=== PATIENT | male | born 1945 | race Caucasian/White ===

== ENCOUNTER 2016-12-21 23:08 | Emergency (ER) | payer MEDICARE ==
[~2016-12-21] VITALS: Ht 182.9 cm; Wt 99.0 kg
[~2016-12-21 23:08] MED LIST: ACET325T51 PO; AMIO200T PO; ASPI-973 PO; CALC-78 PO; CETI10CA PO; DIGO125T73 PO; FLUO40CA PO; FLUT50DI IH; FRSM80T PO; LEVO100T6 PO; LOSA100T29 PO; MAGN400C PO; METO-272 PO; OMEP20CA11 PO; POTA20TA16 PO; SPIR25TA3 PO; TERA5CAP6 PO; TRAZ-115 PO; WARF2.5T82 PO; WARF5TAB7 PO
--- NOTE | 2016-12-21 23:32 | ED.REPORT ---
HPI-General Illness Date of Service Dec 21, 2016 ED Provider: Jefferson Barraza MD Pt is a 71 y.o. male with a hx of Parkinson's, HTN, and pacemaker who presents to the ED c/o dizziness onset 2129. Pt states that he was using his computer when the onset occurred. He reports associated headache, lightheadedness, nausea , and blurred vision. He denies syncope and hearing loss. Pt claims that he has a hx of ocular migraines which have similar sx, yet they typically resolve in 15 minutes. Nursing Notes Stated Complaint: DIZZINESS/HEADACHE Nursing Notes Reviewed: Yes Allergies: Coded Allergies: acyclovir (Verified Allergy, Mild, 12/22/16) Uncoded Allergies: dust,furof animals (Allergy, Intermediate, 08/20/08) Scheduled Amiodarone (Amiodarone) 200 Mg Tablet 200 MG PO MORNING Aspirin (Aspirin) 81 Mg Tablet 81 MG PO DAILY Calcium Carbonate/Vitamin D3 (Calcium 500 + Vit D Caplet) 1 Each Tablet 1 EACH PO MORNING Cetirizine HCl (Zyrtec) 10 Mg Capsule 5 MG PO BID Digoxin (Digoxin) 125 Mcg Tablet 125 MCG PO MORNING Fluoxetine (Fluoxetine) 40 Mg Capsule 40 MG PO DAILY Fluticasone Propionate (Flovent Diskus) 50 Mcg Disk.w.dev 2 PUFF IH DAILY Furosemide (Furosemide) 80 Mg Tab 80 MG PO MORNING Levothyroxine (Levothyroxine) 100 Mcg Tablet 100 MCG PO DAILY Losartan Potassium (Losartan Potassium) 100 Mg Tablet 100 MG PO HS Magnesium Oxide (Magnesium) 400 Mg Capsule 400 MG PO BID Metoprolol Succinate ER (Metoprolol Succinate ER) 50 Mg Tab.er.24h 50 MG PO MORNING Omeprazole (Omeprazole) 20 Mg Capsule.dr 20 MG PO BID Potassium Chloride (Potassium Chloride) 20 Meq Tab.er.prt 20 MEQ PO DAILY TAKE WITH FOOD Spironolactone (Spironolactone) 25 Mg Tablet 25 MG PO DAILY Terazosin (Terazosin) 5 Mg Capsule 5 MG PO DAILY Trazodone (Trazodone) 50 Mg Tablet 50 MG PO HS Warfarin Sodium (Warfarin Sodium) 2.5 Mg Tablet 2.5 MG PO DAILY Warfarin Sodium (Warfarin Sodium) 5 Mg Tablet 5 MG PO DAILY Scheduled PRN Acetaminophen (Acetaminophen) 325 Mg Tablet 500 MG PO MORNING PRN PRN For Fever General Time Seen by MD: 23:30 Chief Complaint Dizziness Hx Obtained From: Patient Sudden in Onset?: Yes Onset Occurred: 1 - 4 hours ago Symptom Duration: Since onset Location: : Head Quality: Painful Severity: Current: Mild Severity: Maximum: Moderate Past Medical History Past Medical History Notes: Dr. Lion Lagunas PCP: Denisse Past Medical History Parkinson's KEV Reports: Hypertension Reports: Atrial fibrillation Past Surgical History pacemaker hernia repair Mitrial valve repair Smoking History Unknown if Ever Smoker Social History Other Social History: From out of town Ambulatory Status Independent Review of Systems Full Review of Systems Eyes: Reports: Blurred bilateral Ears / Nose / Throat: Denies: Hearing loss bilateral GI: Reports: Nausea, Denies: Vomiting Neurologic: Reports: Dizziness, Headache, Lightheaded, Denies: Syncope Complete sys rev & neg: except as marked. Physical Exam Vital Signs Vital Signs Date Time Temp Pulse Resp B/P Pulse Ox O2 Delivery O2 Flow Rate FiO2 12/22/16 01:56 71 20 128/82 98 Room Air 12/21/16 23:37 36.3 70 15 147/91 99 Room Air Initial VS: Reviewed, Vital signs abnormal Respiratory: Breath sounds normal, No respiratory distress Cardiovascular: Regular rate & rhythm, Intact distal pulses Abdomen / GI: No distention Extremities: Vascular intact, Neuro intact Skin: Warm, Dry, No cyanosis Psychiatric: Mood/affect normal, Behavior normal, Normal thought content General/Constitutional: Awake, Alert, No acute distress, Well appearing, Well developed, Well hydrated, Well nourished, Not toxic appearing Head / Eyes: Atraumatic, Normocephalic, PERRL, EOMI, No nystagmus ENT: Atraumatic, Airway patent, Tympanic membs NL, Ext aud canal NL Neurologic: Oriented X3, Speech NL, No motor deficits, CN II - XII intact Occasional problem finding words, which he states is longstanding problem Interpretation & Diagnostics Lab Results Interpretation Test 12/22/16 00:00 Urine Color Yellow (YELLOW) Urine Appearance Clear (CLEAR,HAZY) Urine pH 7.5 (5.0-8.0) Urine Specific Painter 1.010 (1.003-1.035) Urine Protein Negativemg/dL (NEG,TRACE) Urine Glucose (UA) Negativemg/dL (NEGATIVE) Urine Ketones Negativemg/dL (NEGATIVE) Urine Occult Blood Negative (NEGATIVE) Urine Nitrite Negative (NEGATIVE) Urine Bilirubin Negative (NEGATIVE) Urine Urobilinogen Normalmg/dL (NORMAL) Urine Leukocyte Esterase Negative (NEGATIVE) Urine RBC 0-2/hpf (0-2) Urine WBC 0-5/hpf (0-5) Urine Epithelial Cells Occasional/hpf (NONE-MOD) Urine Crystals None seen (NONE SEEN) Urine Bacteria None/hpf (NONE-FEW) Urine Hyaline Casts None/lpf (NONE) Urine Granular Casts None seen (NONE SEEN) Urine Waxy Casts None seen (NONE SEEN) Urine Red Blood Cell Casts None seen (NONE SEEN) Urine White Blood Cell Casts None seen (NONE SEEN) Urine Mucus None seen (None Seen) Urine Trichomonas None seen (NONE SEEN) Urine Yeast None (NONE SEEN) Urine Culture Reflexed Not indicated Hold Urine Received (Received) Lab values outside NL range: no clinical significance. CT Head Interpretation CONCLUSION: No acute intracranial abnormality Re-Eval/Medical Decision Med Decision/Clinical Course 71-year-old male with a history of ocular migraines presents with similar symptoms a little more prominent and long lasting. He has a normal CT scan. Urinalysis is normal. His symptoms have totally resolved. He is being discharged home to resume his regular medications. Time of Eval: 01:42 Patient Status: Condition improved Re-Evaluation/Progress Note: Pt rechecked. Pt states his symptoms are nearly resolved. Discussed plan for discharge, pt undertsands and agrees with plan Counseled Regarding: Diagnosis Discharge & Departure Primary Impression: Dizziness Disposition: Home Discharge Condition All VS Reviewed: Yes Condition: Stable Patient Instructions: Vertigo (ED) Additional Instructions: The cause of your dizziness is not certain but does not appear to be serious. This could be a variation of your migraines. Head CT scan was normal. Recommend that you follow up with your regular doctor as needed if you have persistent symptoms. Referrals: Tracy Acuna MD (PCP) Bernard Attestation Portions of this note were transcribed by Trinh Wyman. I, Dr. Barraza personally performed the history, physical exam and medical decision-making; I reviewed and confirmed the accuracy of the information in the transcribed note. Signed by: Bernard Ochoa, 12/22/16 and 0200. copies to: Tracy Acuna MD, Howard L MD Dec 21, 2016 23:31 TRINH WYMAN Dec 21, 2016 23:38
[2016-12-21 23:37] VITALS: BP 147/91; PULSE 70; RESP 15; O2SAT 99
[2016-12-22 00:57] LABS: APPEARANCE,URINE CLEAR (CLEAR,HAZY); COLOR,URINE YELLOW (YELLOW); OCCULT BLOOD,URINE NEGATIVE (NEGATIVE); PH,URINE 7.5 (5.0-8.0); UROBILINOGEN,URINE NORMAL (NORMAL)
[2016-12-22 01:56] VITALS: BP 128/82; PULSE 71; RESP 20; O2SAT 98
--- NOTE | 2016-12-22 08:27 | DRSVH ---
PROCEDURE: CT BRAIN WITHOUT CONTRAST ([id number]) INDICATIONS: vertigo, numbness of extremities TECHNIQUE: Noncontrast 4.5 mm thick angled axial sections acquired from the foramen magnum to the vertex, with c oronal reformats. COMPARISON: None. FINDINGS: Image quality: Excellent. CSF spaces: Basal cisterns are patent. No extra-axial fluid collections. The ventricles are symmet karuna in size and shape. Brain: No intracranial bleeds or masses. There is cerebral volume loss for age, with resultant vent ricular and sulcal prominence. There are periventricular and deep white matter chronic small vessel ischemic changes. There is intracranial internal carotid artery atherosclerosis. Skull and face: Calvarium and visualized facial bones appear intact, without suspicious lesions. Sinuses: Visualized sinuses and mastoids are clear. IMPRESSION: No acute intracranial process. Dictated by: David Reynolds M.D. on 12/22/2016 at 8:24 Approved by: David Reynolds M.D. on 12/22/2016 at 8:25
== END 2016-12-22 01:56 | disposition home or self-care (01) ==
LOC: SED 23:08 → EDBD 23:08 → EDSEX 23:08 → SED 12-22 01:56
DX: R42 Dizziness and giddiness (principal); R51 Headache; R11.0 Nausea; H53.8 Other visual disturbances; G20 Parkinson's disease; I48.91 Unspecified atrial fibrillation; I10 Essential (primary) hypertension; I50.9 Heart failure, unspecified; Z95.0 Presence of cardiac pacemaker; Z86.69 Personal history of other diseases of the nervous system and sense organs; Z79.01 Long term (current) use of anticoagulants; Z79.82 Long term (current) use of aspirin; Z88.3 Allergy status to other anti-infective agents

== ENCOUNTER 2017-02-14 19:50 | Emergency (ER) | payer MEDICARE ==
[~2017-02-14] VITALS: Ht 182.9 cm; Wt 99.0 kg
[2017-02-14 19:56] VITALS: BP 133/84; PULSE 71; RESP 18; O2SAT 98
--- NOTE | 2017-02-14 20:04 | ED.REPORT ---
HPI-Trauma Minor / Fall Date of Service February 14, 2017 ED Provider: Lawson Santiago MD Patient is a 72 year old male with a history of Parkinson's and CHF who presents to the ED due to a fall at 1430. The patient was on a truck lift gate when he lost balance and fell on his back, hit his left elbow and hit the back of his head. Patient reports having a stiff neck but that is not unusual for him. He denies headache, vomit or nausea. The patient was is currently on Warfarin. Nursing Notes Stated Complaint: FALL, HEAD/ELBOW INJURY Chief Complaint: Multiple Trauma/Fall Nursing Notes Reviewed: Yes Allergies: Coded Allergies: acyclovir (Verified Allergy, Mild, 12/22/16) Uncoded Allergies: dust,furof animals (Allergy, Intermediate, 08/20/08) Scheduled Amiodarone (Amiodarone) 200 Mg Tablet 200 MG PO MORNING Aspirin (Aspirin) 81 Mg Tablet 81 MG PO DAILY Calcium Carbonate/Vitamin D3 (Calcium 500 + Vit D Caplet) 1 Each Tablet 1 EACH PO MORNING Cetirizine HCl (Zyrtec) 10 Mg Capsule 5 MG PO BID Digoxin (Digoxin) 125 Mcg Tablet 125 MCG PO MORNING Fluoxetine (Fluoxetine) 40 Mg Capsule 40 MG PO DAILY Fluticasone Propionate (Flovent Diskus) 50 Mcg Disk.w.dev 2 PUFF IH DAILY Furosemide (Furosemide) 80 Mg Tab 80 MG PO MORNING Levothyroxine (Levothyroxine) 100 Mcg Tablet 100 MCG PO DAILY Losartan Potassium (Losartan Potassium) 100 Mg Tablet 100 MG PO HS Magnesium Oxide (Magnesium) 400 Mg Capsule 400 MG PO BID Metoprolol Succinate ER (Metoprolol Succinate ER) 50 Mg Tab.er.24h 50 MG PO MORNING Omeprazole (Omeprazole) 20 Mg Capsule.dr 20 MG PO BID Potassium Chloride (Potassium Chloride) 20 Meq Tab.er.prt 20 MEQ PO DAILY TAKE WITH FOOD Spironolactone (Spironolactone) 25 Mg Tablet 25 MG PO DAILY Terazosin (Terazosin) 5 Mg Capsule 5 MG PO DAILY Trazodone (Trazodone) 50 Mg Tablet 50 MG PO HS Warfarin Sodium (Warfarin Sodium) 2.5 Mg Tablet 2.5 MG PO DAILY Warfarin Sodium (Warfarin Sodium) 5 Mg Tablet 5 MG PO DAILY Scheduled PRN Acetaminophen (Acetaminophen) 325 Mg Tablet 500 MG PO MORNING PRN PRN For Fever General Time Seen by MD: 20:04 Chief Complaint Fall Hx Obtained From: Patient Arrived By: Walk-in Onset Occurred: 5 - 8 hours ago Symptom Duration: Since onset Caused by: Fall from height... (< 3 feet) Location: Back Elbow left Head Context: Immunizations Tetanus not up to date Recent Healthcare: No recent hospitalization, Recent doctor visit Similar Sx Previous: Yes Past Medical History Past Medical History Notes: Dr. Lion Lagunas PCP: Denisse Past Medical History Parkinson's KEV CHF Reports: Hypertension Reports: Atrial fibrillation Past Surgical History pacemaker hernia repair Mitrial valve repair Smoking History Unknown if Ever Smoker Social History Other Social History: Good social support, , From out of town Ambulatory Status Independent Review of Systems Musculoskeletal: Reports: Back pain, Extremity pain (left elbow), Neck pain ( stiffness) Neurologic: Denies: Headache Complete sys rev & neg: except as marked. GI: Denies: Nausea, Vomiting Physical Exam Initial Vital Signs Vital Signs (First) Date Time Temp Pulse Resp B/P Pulse Ox O2 Delivery O2 Flow Rate FiO2 02/14/17 19:56 36.2 71 18 133/84 98 Room Air Initial VS: Reviewed General/Constitutional: Awake, Alert, No acute distress Neck: Atraumatic, Supple, Full range of motion Head / Eyes: Atraumatic, Normocephalic, PERRL, EOMI Respiratory / Chest: Atraumatic, Breath sounds NL, Breath sounds = bilat, No respiratory distress Back: Non-tender, No paraspinal tenderness abrasions to upper mid thoracic UPPER EXTREMITIES: good range of motion of the left arm small abrasion over left elbow no palpable effusion Skin: Atraumatic, No rash, Warm, Dry Neurologic: Oriented X3, Speech NL, No motor deficits, No sensory deficits Psychiatric: Affect NL, Mood NL Interpretation & Diagnostics Lab Results Interpretation Test 02/14/17 20:34 Prothrombin Time 33.5sec (8.1-12.5) Prothromb Time International Ratio 3.06ratio Hold [place]bour Top Tube Received (Received) X-Ray Chest Interpretation Chest Xray Interpretation: IMPRESSION: Acute disease is not seen in the upright portable chest. Dictated by: Nick Mazariegos M.D. on 02/14/2017 at 21:18 Approved by: Nick Mazariegos M.D. on 02/14/2017 at 21:19 View: Portable, 1 view Interpretation / Wet Read by: Interpret - Radiologist X-Ray Interpretation Xray Interpretation: IMPRESSION: I do not identify an acute fracture of the elbow. No joint effusion is seen either. Dictated by: Nick Mazariegos M.D. on 02/14/2017 at 21:28 Approved by: Nick Mazariegos M.D. on 02/14/2017 at 21:29 X-Ray Ordered: Elbow left Interpretation / Wet Read by: Interpret - Radiologist CT Head Interpretation IMPRESSION: No acute intracranial abnormality. Atrophic changes are present. Dictated by: Nick Mazariegos M.D. on 02/14/2017 at 20:32 Approved by: Nick Mazariegos M.D. on 02/14/2017 at 20:33 Interpretation / Wet Read by: Interpret - Radiologist Re-Eval/Medical Decision Re-Evaluation/Progress : Time of Eval: 22:31 Re-Evaluation/Progress Note: Discussed X-ray results with the patient. Discussed plan for discharge with the patient. The patient understands and agrees to the plan for discharge. All questions were addressed. Counseled Regarding: Diagnosis, Lab results, Need for follow-up, When/why to return to ED Discharge & Departure Impression: Primary Impression: Minor head injury without loss of consciousness Encounter type: initial encounter Qualified Code: S09.90XA - Unspecified injury of head, initial encounter Additional Impressions: Anticoagulated with warfarin Contusion Encounter type: initial encounter Contusion area: elbow Laterality: left Qualified Code: S50.02XA - Contusion of left elbow, initial encounter Abrasion Disposition: Home Discharge Condition All VS Reviewed: Yes Condition: Stable Patient Instructions: Contusions in Adults (ED), Minor Head Injury (ED) Additional Instructions: Emergency department evaluation tonight included interview, examination lab CT head x-ray of chest and left elbow. No serious injuries identified and anticoagulation is appropriate at 3.09. A tetanus booster was given, this is good for 10 years. Keep elbow abrasions covered and apply antibiotic ointment daily. Ice packs to elbow will help with comfort and swelling, keep ice wrapped in a cloth and removed after 10-15 minutes. This can be done 3-4 times a day. A sling is provided for comfort, get arm out and do gentle range of motion exercises for shoulder beginning in 1-2 days. Hydrocodone/APAP one to 2 every 4 hours as needed for pain. Return to emergency department immediately for headache vomiting unsteadiness on feet. Follow-up with primary care next week. Referrals: Tracy Acuna MD (PCP) Bernard Attestation Portions of this note were transcribed by Columba Galvan. I, Dr. Santiago personally performed the history, physical exam and medical decision-making; I reviewed and confirmed the accuracy of the information in the transcribed note. Signed by: Bernard Arias, 02/14/17 and 2234. copies to: Tracy Acuna MD, Donald L MD February 14, 2017 20:04 Radha Galvan February 14, 2017 20:26
[2017-02-14] MEDS ORDERED: HYDROcodone-APAP 5-325 mg Tablet PO ONE (20:30)
--- NOTE | 2017-02-14 20:34 | DRSVH ---
PROCEDURE: CT BRAIN WITHOUT CONTRAST ([id number]) INDICATIONS: anticoagulated head injury TECHNIQUE: Noncontrast 4.5 mm thick angled axial sections acquired from the foramen magnum to the vertex, with c oronal reformats. COMPARISON: None. FINDINGS: Image quality: Excellent. CSF spaces: Basal cisterns are patent. No extra-axial fluid collections. The ventricles are symmet karuna in size and shape. Brain: No intracranial bleeds or masses. There is cerebral volume loss for age, with resultant vent ricular and sulcal prominence. There are periventricular and deep white matter chronic small vessel ischemic changes. There is intracranial internal carotid artery atherosclerosis. Skull and face: Calvarium and visualized facial bones appear intact, without suspicious lesions. Sinuses: Visualized sinuses and mastoids are clear. IMPRESSION: No acute intracranial abnormality. Atrophic changes are present. Dictated by: Nick Mazariegos M.D. on 02/14/2017 at 20:32 Approved by: Nick Mazariegos M.D. on 02/14/2017 at 20:33
[2017-02-14 21:08] LABS: INR 3.06 ratio
--- NOTE | 2017-02-14 21:21 | DRSVH ---
PROCEDURE: X-RAY CHEST ONE VIEW ([id number]) INDICATIONS: fall elbow and chest injury TECHNIQUE: One view of the chest was acquired. COMPARISON: None. FINDINGS: Surgical changes and devices: Pacemaker defibrillator from the left is present. Sternotomy wires are present. Lungs and pleura: No pleural effusions or pneumothorax. Lungs are clear. Vasculature appears slight ly prominent but unchanged since over images. No evidence for failure or focal infiltrate Mediastinum: Mediastinal contours appear normal. Heart size is normal. Bones and chest wall: No suspicious bony lesions. Overlying soft tissues appear unremarkable. IMPRESSION: Acute disease is not seen in the upright portable chest. Dictated by: Nick Mazariegos M.D. on 02/14/2017 at 21:18 Approved by: Nick Mazariegos M.D. on 02/14/2017 at 21:19
--- NOTE | 2017-02-14 21:30 | DRSVH ---
PROCEDURE: X-RAY LEFT ELBOW COMPLETE, MINIMUM THREE VIEWS ([id number]) INDICATIONS: fall elbow and chest injury TECHNIQUE: 3 views of the elbow were acquired. COMPARISON: None. FINDINGS: Bones: No fractures or dislocations. No suspicious bony lesions. Soft tissues: No elbow joint effusion. No suspicious soft tissue calcifications. IMPRESSION: I do not identify an acute fracture of the elbow. No joint effusion is seen either. Dictated by: Nick Mazariegos M.D. on 02/14/2017 at 21:28 Approved by: Nick Mazariegos M.D. on 02/14/2017 at 21:29
[2017-02-14] MEDS ORDERED: TdaP Vaccine 0.5 mL Inj IM ONE (22:40)
[2017-02-14] MEDS ORDERED: _HYDROcodone/APAP 5-325 mg Tablet PO PRN (22:40)
[2017-02-14] MEDS ORDERED: Bacitracin Ointment Packet TOPICAL ONE (22:40)
[2017-02-14 23:15] VITALS: BP 152/91; PULSE 70; RESP 18; O2SAT 98
== END 2017-02-14 23:15 | disposition home or self-care (01) ==
LOC: SED 19:50
DX: S09.8XXA Other specified injuries of head, initial encounter (principal); S50.02XA Contusion of left elbow, initial encounter; S50.312A Abrasion of left elbow, initial encounter; W17.89XA Other fall from one level to another, initial encounter; Y93.89 Activity, other specified; Y92.89 Other specified places as the place of occurrence of the external cause; Y99.8 Other external cause status; I11.0 Hypertensive heart disease with heart failure; I50.9 Heart failure, unspecified; Z95.0 Presence of cardiac pacemaker; Z79.82 Long term (current) use of aspirin; Z79.01 Long term (current) use of anticoagulants; Z79.899 Other long term (current) drug therapy; Z88.1 Allergy status to other antibiotic agents; Z23 Encounter for immunization

== ENCOUNTER 2017-03-11 18:54 | Emergency (ER) | payer MEDICARE ==
[~2017-03-11] VITALS: Ht 182.9 cm; Wt 99.1 kg
[2017-03-11 18:57] VITALS: BP 127/77; PULSE 71; RESP 20; O2SAT 97
--- NOTE | 2017-03-11 19:12 | ED.REPORT ---
HPI-General Illness Date of Service March 11, 2017 ED Provider: Noé Arceo MD Pt is a 72 y/o male anticoagulated on Warfarin w/ a hx of Parkinson's, CHF s/p mitral valve replacement, HTN, A-fib, pacemaker insertion, presenting to the ED with his c/o transient and mild blurry vision now resolved onset about 1 hour prior to arrival. The patient was doing some strenuous home work today and sat down to rest and 5 minutes later he experienced transient blurry vision, diplopia, shakiness, and palpitations, lasting for about 5-10 minutes. He denies and ongoing lightheadedness, near syncope, nausea, chest pain, SOB, diaphoresis, BANERJEE, facial droop, slurred speech, focal numbness or weakness, abdominal pain, fever, cough, melena, bloody stools. He denies any recent falls. He has been eating and drinking well but admits that he may have been a little bit dehydrated from working hard in the sun all day. He has experienced similar symptoms infrequently previously with no clear etiology has been thoroughly worked up including assessment by a neurologist. The patient is moving and reports he has been having trouble sleeping at night which he believes may be a cause of his. He has a remote hx of GI bleed 50 years ago and denies any melena or bright red blood per rectum. 3-4 years ago he saw a neurologist regarding dizzy spells and a full workup was negative and his symptoms were reportedly thought to be caused by lack of sleep. The patient was seen here in [facility] ED on 02/14/17 for a minor head injury without LOC at which time chest x-ray, left elbow x-ray, and CT head were negative. Nursing Notes Stated Complaint: DIZZY, DOUBLE VISION, BLURRED VISION Chief Complaint: General Complaint Nursing Notes Reviewed: Yes Allergies: Coded Allergies: acyclovir (Verified Allergy, Mild, 12/22/16) Uncoded Allergies: dust,furof animals (Allergy, Intermediate, 08/20/08) Scheduled Amiodarone (Amiodarone) 200 Mg Tablet 200 MG PO MORNING Aspirin (Aspirin) 81 Mg Tablet 81 MG PO DAILY Calcium Carbonate/Vitamin D3 (Calcium 500 + Vit D Caplet) 1 Each Tablet 1 EACH PO MORNING Cetirizine HCl (Zyrtec) 10 Mg Capsule 5 MG PO BID Digoxin (Digoxin) 125 Mcg Tablet 125 MCG PO MORNING Fluoxetine (Fluoxetine) 40 Mg Capsule 40 MG PO DAILY Fluticasone Propionate (Flovent Diskus) 50 Mcg Disk.w.dev 2 PUFF IH DAILY Furosemide (Furosemide) 80 Mg Tab 80 MG PO MORNING Levothyroxine (Levothyroxine) 100 Mcg Tablet 100 MCG PO DAILY Losartan Potassium (Losartan Potassium) 100 Mg Tablet 100 MG PO HS Magnesium Oxide (Magnesium) 400 Mg Capsule 400 MG PO BID Metoprolol Succinate ER (Metoprolol Succinate ER) 50 Mg Tab.er.24h 50 MG PO MORNING Omeprazole (Omeprazole) 20 Mg Capsule.dr 20 MG PO BID Potassium Chloride (Potassium Chloride) 20 Meq Tab.er.prt 20 MEQ PO DAILY TAKE WITH FOOD Spironolactone (Spironolactone) 25 Mg Tablet 25 MG PO DAILY Terazosin (Terazosin) 5 Mg Capsule 5 MG PO DAILY Trazodone (Trazodone) 50 Mg Tablet 50 MG PO HS Warfarin Sodium (Warfarin Sodium) 2.5 Mg Tablet 2.5 MG PO DAILY Warfarin Sodium (Warfarin Sodium) 5 Mg Tablet 5 MG PO DAILY Scheduled PRN Acetaminophen (Acetaminophen) 325 Mg Tablet 500 MG PO MORNING PRN PRN For Fever General Time Seen by MD: 19:12 Chief Complaint Other (vision changes) Hx Obtained From: Patient Arrived By: Walk-in Sudden in Onset?: Yes Onset Occurred: 1 - 4 hours ago Symptom Duration: 1 - 15 minutes Severity: Current: No pain currently Severity: Maximum: No pain Similar Sx Previous: Yes Past Medical History Past Medical History Notes: Dr. Lion Lagunas PCP: Denisse Past Medical History Parkinson's KEV CHF s/p open heart surgery Reports: Hypertension Reports: Atrial fibrillation Past Surgical History pacemaker hernia repair Mitrial valve repair Open heart surgery 2011 Mitral valve replacement Smoking History Unknown if Ever Smoker Social History Other Social History: Good social support, , From out of town Ambulatory Status Independent Review of Systems Full Review of Systems Constitutional: Denies: Chills, Fever Eyes: Reports: Blurred bilateral, Diplopia, Denies: Eye pain bilateral, Photophobia, Visual loss bilateral Respiratory: Denies: Non-productive cough, Shortness of breath Cardiovascular: Reports: Palpitations, Denies: Chest pain GI: Denies: Abdominal pain, Bloody/tarry stool, Diarrhea, Hematemesis, Melena, Nausea, Vomiting Skin: Denies Diaphoresis, Denies Rash, Denies Swelling Neurologic: Reports: Shaking, Vision change, Denies: Change LOC, Headache, Lightheaded, Seizure, Slurred speech, Spinning sensation, Syncope, Unable to speak Physical Exam Vital Signs Vital Signs Date Time Temp Pulse Resp B/P Pulse Ox O2 Delivery O2 Flow Rate FiO2 03/11/17 21:27 70 16 143/86 98 Room Air 03/11/17 19:57 70 13 140/87 99 Room Air 03/11/17 18:57 36.1 71 20 127/77 97 Room Air Initial VS: Reviewed, Vital signs normal Head / Eyes: Atraumatic, Normocephalic, PERRL Neck: Supple, Full range of motion Respiratory: Breath sounds normal, Clear to auscultation, No respiratory distress Cardiovascular: Regular rate & rhythm, Heart sounds normal, Intact distal pulses Abdomen / GI: Soft, Non-tender, No guarding, No rebound, No distention Extremities: Vascular intact, Neuro intact, No swelling, No tenderness Skin: Warm, Dry, No cyanosis Psychiatric: Mood/affect normal, Behavior normal, Normal thought content General/Constitutional: Awake, Alert, No acute distress, Well appearing, Cooperative, Not toxic appearing ENT: Atraumatic, Airway patent Mouth: Positive: Mucous membranes dry (mild) Neurologic: Oriented X3, Speech NL, No motor deficits, No sensory deficits, CN II - XII intact, Cerebellar NL, Memory NL No pronator drift Interpretation & Diagnostics Lab Results Interpretation Result Diagram: 03/11/17194703/11/171947 Test 03/11/17 19:48 03/11/17 20:20 White Blood Count 8.3th/mm3 (3.8-10.1) Red Blood Count 4.05mil/mm3 (4.40-5.80) Hemoglobin 12.4g/dL (13.8-17.2) Hematocrit 37.2% (41.0-50.0) Mean Corpuscular Volume 91.9fL (81-100) Mean Corpuscular Hemoglobin 30.6pg (27.0-35.0) Mean Corpuscular Hemoglobin Concent 33.3% (32.0-37.0) Red Cell Distribution Width 15.0% (12.3-15.4) Platelet Count 242bil/L (150-400) Neutrophils (%) (Auto) 73.7% (40-74) Lymphocytes (%) (Auto) 8.8% (14-46) Monocytes (%) (Auto) 12.2% (4-12) Eosinophils (%) (Auto) 3.2% (0-5) Basophils (%) (Auto) 0.2% (0-3) Prothrombin Time 35.3sec (8.1-12.5) Prothromb Time International Ratio 3.22ratio Sodium Level 125mEq/L (134-144) Potassium Level 4.6mEq/L (3.5-5.2) Chloride Level 88mEq/L (97-108) Carbon Dioxide Level 21mmol/L (18-29) Blood Urea Nitrogen 29mg/dL (8-27) Creatinine 1.51mg/dL (0.76-1.27) Estimat Glomerular Filtration Rate 48mL/min (>59) Glucose Level 98mg/dL (60-99) Calcium Level 8.7mg/dL (8.5-10.1) Total Bilirubin 0.5mg/dL (0.0-1.2) Aspartate Amino Transf (AST/SGOT) 24U/L (0-50) Alanine Aminotransferase (ALT/SGPT) 26U/L (0-44) Alkaline Phosphatase 46U/L (25-160) Troponin T < 0.010ug/L (0.0-0.011) Pro-B-Type Natriuretic Peptide 1075pg/mL (0-486) Total Protein 6.7g/dL (6.4-8.4) Albumin 4.1g/dL (3.4-5.0) Hold [place] Top Tube Received (Received) Urine Color Straw (YELLOW) Urine Appearance Clear (CLEAR,HAZY) Urine pH 5.5 (5.0-8.0) Urine Specific [place] <1.005 (1.003-1.035) Urine Protein Negativemg/dL (NEG,TRACE) Urine Glucose (UA) Negativemg/dL (NEGATIVE) Urine Ketones Negativemg/dL (NEGATIVE) Urine Occult Blood Negative (NEGATIVE) Urine Nitrite Negative (NEGATIVE) Urine Bilirubin Negative (NEGATIVE) Urine Urobilinogen Normalmg/dL (NORMAL) Urine Leukocyte Esterase Negative (NEGATIVE) Urine RBC 0-2/hpf (0-2) Urine WBC 0-5/hpf (0-5) Urine Epithelial Cells Occasional/hpf (NONE-MOD) Urine Crystals None seen (NONE SEEN) Urine Bacteria None/hpf (NONE-FEW) Urine Hyaline Casts None/lpf (NONE) Urine Granular Casts None seen (NONE SEEN) Urine Waxy Casts None seen (NONE SEEN) Urine Red Blood Cell Casts None seen (NONE SEEN) Urine White Blood Cell Casts None seen (NONE SEEN) Urine Mucus None seen (None Seen) Urine Trichomonas None seen (NONE SEEN) Urine Yeast None (NONE SEEN) Urinalysis Comment None Urine Culture Reflexed Not indicated ECG Interpretation ECG Interpretation: Ventricular paced rhythm rate 70 Time: 19:56 Interpreted by: ED physician CT Head Interpretation IMPRESSION: No acute process. Dictated by: Ya Mendoza M.D. on 03/11/2017 at 19:50 Approved by: Ya Mendoza M.D. on 03/11/2017 at 19:51 Study: Head CT no contrast Interpretation / Wet Read by: Interpret - Radiologist Re-Eval/Medical Decision Med Decision/Clinical Course Pt is a 72 y/o male anticoagulated on Warfarin w/ a hx of Parkinson's, CHF s/p mitral valve replacement, HTN, A-fib, pacemaker insertion, presenting to the ED with his c/o transient and mild blurry vision now resolved onset about 1 hour prior to arrival. The patient was doing some strenuous home work today and sat down to rest and 5 minutes later he experienced transient blurry vision, diplopia, shakiness, and palpitations, lasting for about 5-10 minutes. He denies and ongoing lightheadedness, near syncope, nausea, chest pain, SOB, diaphoresis, BANERJEE, facial droop, slurred speech, focal numbness or weakness, abdominal pain, fever, cough, melena, bloody stools. He denies any recent falls. He has been eating and drinking well but admits that he may have been a little bit dehydrated from working hard in the sun all day. He has experienced similar symptoms infrequently previously with no clear etiology has been thoroughly worked up including assessment by a neurologist. The patient is moving and reports he has been having trouble sleeping at night which he believes may be a cause of his. He has a remote hx of GI bleed 50 years ago and denies any melena or bright red blood per rectum. 3-4 years ago he saw a neurologist regarding dizzy spells and a full workup was negative and his symptoms were reportedly thought to be caused by lack of sleep. The patient was seen here in [facility] ED on 02/14/17 for a minor head injury without LOC at which time chest x-ray, left elbow x-ray, and CT head were negative. Here in the emergency department the patient is afebrile with stable vital signs and examination as above. Of note he appears slightly dehydrated. EKG: Ventricular paced rhythm rate [address]: No acute process. Labs notable as below: CBC: Unremarkable, HCT of 37.2 which is stable, no leukocytosis CMP: borderline hyponatremic with sodium of 125 near regular baseline, BUN of 26 , creatinine of 1.51 slightly elevated from baseline Troponin: negative BNP: moderately elevated at 1075 Coag studies: INR slightly supratherapeutic at 3.22 UA: no signs of UTI Cause of the patient's event today remains unclear. His presentation was not strokelike in nature. He is on Coumadin though without head trauma and negative CT scan. He never lost consciousness or had any seizure-like activity. He is mildly hyponatremic but this is not significantly changed from his regular baseline. He does appear slightly dehydrated and was working strenuously in the sun throughout the day. I suspect he may be slightly dehydrated as is evidenced by his mild acute kidney injury. At this time, I do not feel that the patient necessarily needs to be admitted nor does he desire admission to the hospital. I advised him to increase his dietary sodium intake and orally hydrate with electrolyte containing fluids such as Gatorade or Pedialyte. He will follow up closely with his primary care physician and he will return immediately for any new or recurrent episodes. Prior to discharge follow-up and return precautions were reviewed in detail with the patient who verbalized understanding and agreement with the plan. The patient was discharged in stable condition. Time of Eval: 21:09 Patient Status: Condition improved, Moderate relief Re-Evaluation/Progress Note: Pt rechecked. Informed pt of plan for treatment. Pt understands and agrees with plan for treatment. F/U instructions and RTER warnings given. All questions addressed. Counseled Regarding: Diagnosis, Lab results, Need for follow-up, When/why to return to ED Discharge & Departure Primary Impression: Dehydration Additional Impressions: Hyponatremia Supratherapeutic INR Near syncope Lightheadedness Disposition: Home Discharge Condition All VS Reviewed: Yes Condition: Stable Patient Instructions: Dehydration (ED) Additional Instructions: Thank you for seeking care at the emergency room. It is difficult for us to make definitive diagnoses in the ED but we believe that you are experiencing symptoms caused by dehydration. Our primary goal today in the ED was to evaluate you for any life-threatening conditions. Your evaluation was reassuring. The chest x-ray, EKG, and CT scan were normal. Your labs showed signs of dehydration. I recommend you drink plenty of fluids, increase your dietary sodium, and have your electrolytes rechecked in 1 week by your primary care doctor. Your INR was 3.22 today which is a bit too high. Discuss this with the INR clinic tomorrow. You should follow-up with your primary doctor later this week for recheck and repeat labs. You should return to the ED immediately if you develop recurrent episodes, fevers, vomiting, cough, shortness of breath, chest pain, lightheadedness, weakness or any other concerning signs or symptoms. Thank you for letting us partake in your care today. Referrals: Tracy Acuna MD (PCP) Scribe Attestation Portions of this note were transcribed by Gavin Villafana. I, Dr. Santiago personally performed the history, physical exam and medical decision-making; I reviewed and confirmed the accuracy of the information in the transcribed note. Signed by Bernard Llanes, 03/11/171999 copies to: Tracy Acuna MDreeNoé ken MD March 11, 2017 19:12 GAVIN VILLAFANA March 11, 2017 19:31
--- NOTE | 2017-03-11 19:52 | DRSVH ---
PROCEDURE: CT BRAIN WITHOUT CONTRAST ([id number]) INDICATIONS: Stroke TECHNIQUE: Noncontrast 4.5 mm thick angled axial sections acquired from the foramen magnum to the vertex, with c oronal reformats. COMPARISON: [facility], CT, CT BRAIN WO CON, 02/14/2017, 20:14. FINDINGS: Image quality: Excellent. CSF spaces: Basal cisterns are patent. No extra-axial fluid collections. The ventricles are symmet karuna in size and shape. Brain: No intracranial bleeds or masses. 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 There is cerebral volume loss for age, with resultant ventricular an d sulcal prominence. There are periventricular and deep white matter chronic small vessel ischemic c hanges. There is intracranial internal carotid artery atherosclerosis. Skull and face: Calvarium and visualized facial bones appear intact, without suspicious lesions. Sinuses: Visualized sinuses and mastoids are clear. IMPRESSION: No acute process. Dictated by: Ya Mendoza M.D. on 03/11/2017 at 19:50 Approved by: Ya Mendoza M.D. on 03/11/2017 at 19:51
[2017-03-11 19:57] VITALS: BP 140/87; PULSE 70; RESP 13; O2SAT 99
[2017-03-11 19:57] LABS: BASOPHILS % (AUTO) 0.2 % (0-3); EOSINOPHILS % (AUTO) 3.2 % (0-5); MONOCYTES % (AUTO) 12.2 % (4-12); Mean Corpuscular Hemoglobin 30.6 pg (27.0-35.0); Mean Corpuscular Volume 91.9 fL (81-100); NEUTROPHILS % (AUTO) 73.7 % (40-74); Platelet Count 242 bil/L (150-400)
[2017-03-11] MEDS ORDERED: 0.9% Sodium Chloride 1,000 ML IV ONE (20:00)
[2017-03-11 20:11] LABS: INR 3.22 ratio
[2017-03-11 20:20] LABS: TROPONIN T < 0.010 ug/L (0.0-0.011)
[2017-03-11 20:28] LABS: APPEARANCE,URINE CLEAR (CLEAR,HAZY); COLOR,URINE STRAW (YELLOW); OCCULT BLOOD,URINE NEGATIVE (NEGATIVE); PH,URINE 5.5 (5.0-8.0); UROBILINOGEN,URINE NORMAL (NORMAL)
[2017-03-11 21:27] VITALS: BP 143/86; PULSE 70; RESP 16; O2SAT 98
== END 2017-03-11 21:19 | disposition home or self-care (01) ==
LOC: SED 18:54
DX: E86.0 Dehydration (principal); E87.1 Hypo-osmolality and hyponatremia; R55 Syncope and collapse; R42 Dizziness and giddiness; R79.1 Abnormal coagulation profile; I11.0 Hypertensive heart disease with heart failure; I50.9 Heart failure, unspecified; I48.91 Unspecified atrial fibrillation; G20 Parkinson's disease; G47.33 Obstructive sleep apnea (adult) (pediatric); Z95.0 Presence of cardiac pacemaker; Z95.4 Presence of other heart-valve replacement; Z87.828 Personal history of other (healed) physical injury and trauma; Z87.19 Personal history of other diseases of the digestive system; Z79.82 Long term (current) use of aspirin; Z79.01 Long term (current) use of anticoagulants; Z88.8 Allergy status to other drugs, medicaments and biological substances
CPT/HCPCS: 36415; 70450; 80053; 81000; 83880; 84484; 85025; 85610; 93005; 96360; 99285; J7030